=== PATIENT | male | born 1980 | race Caucasian/White ===

== ENCOUNTER 2018-04-20 14:58 | Observation (INO) ==
[2018-04-20] MEDS ORDERED: Ampicillin/Sulbactam 3,000 MG in D5% in Water (Mini-Bag+) 100 ML IVPB ONE (15:59)
[2018-04-20] MEDS ORDERED: *HR* OxyCODONE/APAP 5/325 TABLET PO ONE (15:59)
[2018-04-20] MEDS ORDERED: 0.9 % Sodium Chloride 1,000 ML IVC ONE (15:59)
[2018-04-20] MEDS ORDERED: Vancomycin 1,000 MG VIAL IVPB ONE (15:59)
--- NOTE | 2018-04-20 16:05 | Emergency Department Note ---
Disposition Clinical Impression: Abscess of skin or subcutaneous tissue Qualifiers: Site of cutaneous abscess: extremity Site of cutaneous abscess of extremity: lower extremity Laterality: right Qualified Code(s): L02.415 - Cutaneous abscess of right lower limb Disposition: Admitted As Inpatient Condition: Good Referrals: Ciera Lyn ROUTER TENDER [Primary Care Provider] - Time of Disposition: 19:15 (Dr Diaz acepted pt for IV ABX) Skin/Abscess/FB HPI Stated complaint: infection Source: patient Mode of arrival: ambulatory Nursing Notes Reviewed: Yes Vital Signs Reviewed: Yes HPI Narrative: Patient is a pleasant 37-year-old male with significant PMH diabetes, dyslipidemia, morbid obesity and recurrent cellulitis who is presenting to [facility] Emergency Room with a chief complaint off right inner thigh with worsening wound. He states that about 2 weeks ago he was seen at [facility] and was treated for his cellulitis. It was drained by the surgeon Dr. Torre. Today he went again but was unable to see him because off and after unavailability of the surgeon. Discussion with Dr Whitney ER physician states that pt was there earlier and Dr Torre was not available. He couldnt drain it because pt is on xeralta. Patient denies any fever, chills or night sweats. Pt also denies any eye pain or visual disturbances. There is no sore throat, nasal drainages or facial congestion. There is no chest pain, palpitations or racing heart. Pt also denies any shortness of breath, cough or chest congestion. There is no abdominal pain, nausea, vomiting or diarrhea. There is no urgency, frequency or dysuria. There is no neurological manifestations, no headache, no vertigo or weakness. The patient also denies any anxiety, depression, hallucinations and has no homicidal or suicidal ideations. There is no polyuria, polydipsia or recent weight change. There is no easy bruising or bleeding. Review of other systems is otherwise negative except above. Pt Subjective Complaint: abscess/boil Onset (ago): week(s) Location: RLE Severity: moderate Severity scale (1-10): 5 Quality: dull Home Medications Medication Instructions Recorded Confirmed Fluticasone Propionate Nasal 1 spray NS DAILY 03/23/15 04/20/18 [Flonase] Gabapentin [Neurontin] 900 mg PO TID 03/23/15 04/20/18 Glimepiride [Amaryl] 2 mg PO DAILY 03/23/15 04/20/18 GuaiFENesin ER [Mucinex] 600 mg PO BID 03/23/15 04/20/18 Hydrochlorothiazide 12.5 mg PO DAILY 03/23/15 04/20/18 Levothyroxine Sodium [Synthroid] 100 mcg PO DAILY 03/23/15 04/20/18 Loratadine [Loradamed] 10 mg PO DAILY 03/23/15 04/20/18 Meloxicam 15 mg PO DAILY 03/23/15 04/20/18 Metformin [Glucophage] 2 tab PO BID 03/23/15 04/20/18 Montelukast Sodium [Singulair] 10 mg PO HS 03/23/15 04/20/18 Omeprazole [Prilosec] 40 mg PO HS #0 03/23/15 04/20/18 Rivaroxaban [Xarelto] 20 mg PO HS 03/23/15 04/20/18 Albuterol Sulfate [Proair HFA] 2 puff IH Q4HR PRN 03/25/15 04/20/18 Ergocalciferol (VITAMIN D2) 50,000 unit PO QWEEK 03/25/15 04/20/18 [Drisdol] DULoxetine [Cymbalta] 40 mg PO DAILY 02/22/17 04/20/18 Allergies Allergy/AdvReac Type Severity Reaction Status Date / Time sulfamethoxazole Allergy Mild Hives Verified 02/22/17 00:15 [From Bactrim] trimethoprim [From Bactrim] Allergy Mild Hives Verified 02/22/17 00:15 Penicillins [PCN] AdvReac Mild UNKNOWN Verified 02/22/17 00:15 adhesive tape AdvReac Hives Verified 02/22/17 00:15 All systems ED: reviewed and negative except as stated. Review of Systems: As Per HPI Constitutional: Reports: chills. Denies: fever Eyes: Denies: eye pain, eye discharge ENT ED: Denies: ear pain, throat pain Cardiovascular: Denies: chest pain, palpitations Respiratory: Denies: cough, dyspnea Gastrointestinal: Denies: abdominal pain, nausea Genitourinary: Denies: urgency, dysuria Musculoskeletal: Denies: back pain, neck pain Integumentary: Reports: rash Past Medical History - Past Medical History Medical history: Reports: COPD, DVT, diabetes, thyroid disease Psychiatric history: Reports: anxiety, depression - Social History Smoking Status: Current every day smoker Smokeless Tobacco Status: No Alcohol use: Reports: none Drug use: Reports: none, other Physical Exam - General Limitations: no limitations General appearance: alert, in no apparent distress - Head Head exam: atraumatic, normocephalic, normal inspection - Eye Eye exam: Present: normal appearance, PERRL, EOMI - Expanded Eye Exam Pupils: Left: reactive - ENT ENT exam: normal exam, normal oropharynx, mucous membranes moist - Expanded ENT Exam External ear exam: Present: normal external inspection Mouth exam: Present: normal external inspection Teeth exam: Present: normal inspection Throat exam: Present: normal inspection - Neck Neck exam: Present: normal inspection, full ROM, trachea midline - Chest Chest inspection: Present: normal inspection, symmetric chest wall rise - Respiratory Respiratory exam: Present: normal lung sounds bilaterally - Cardiovascular Cardiovascular exam: Present: regular rate, normal rhythm, normal heart sounds - Abdominal Exam Abdominal exam: Present: soft, Non-Tender. Absent: tenderness, distention, guarding, rebound, rigidity - Extremities Exam Extremities exam: Present: normal inspection, full ROM. Absent: tenderness, pedal edema - Expanded Upper Extremity Exam Shoulder exam: Present: normal inspection, full ROM Arm exam: Present: normal inspection, full ROM Elbow exam: Present: normal inspection, full ROM Forearm/Wrist exam: Present: normal inspection, full ROM Hand exam: Present: normal inspection, full ROM Vascular exam: Normal: capillary refill, radial pulse - Expanded Lower Extremity Exam Hip/Pelvis exam: Present: normal inspection, full ROM Upper leg exam: Present: normal inspection, full ROM, erythema, other (there is about 8x9 cm non fluctuant swelling granulation tidsues and surrounded by erythema, tender to touch, swelling is opened and ozing blood) Knee exam: Present: normal inspection, full ROM Lower leg exam: Present: normal inspection, full ROM Ankle exam: Present: normal inspection, full ROM Foot/toe exam: Present: normal inspection, full ROM Neurovascular/Tendon exam: Absent: motor deficit, sensory deficit, tendon deficit - Back Exam Back exam: Present: normal inspection, full ROM. Absent: tenderness - Neurological Exam Neurological exam: Present: alert, oriented X3 - Expanded Neurological Exam Patient oriented to: Present: person, place, time Coma Scale Eye Opening: Spontaneous Coma Scale Motor Response: Obeys Commands Coma Scale Verbal Response: Oriented Coma Scale Total: 15 - Psychiatric Psychiatric exam: Present: normal affect, normal mood - Skin Skin exam: Present: warm, dry, intact, normal color Course Vital Signs Temperature 97.5 F L 04/20/18 15:30 Pulse Rate 124 04/20/18 15:30 Respiratory Rate 18 04/20/18 15:30 Blood Pressure 126/70 04/20/18 15:30 O2 Sat by Pulse Oximetry 90 04/20/18 15:30 Temperature 97.5 F L 04/20/18 15:30 Pulse Rate 124 04/20/18 15:30 Respiratory Rate 18 04/20/18 15:30 Blood Pressure 126/70 04/20/18 15:30 O2 Sat by Pulse Oximetry 90 04/20/18 15:30 Oxygen Delivery Oxygen Delivery Room Air Skin/Abscess/Foreign Body - Differential Diagnosis Likely: abscess of skin or subcutaneous tissue, viral exanthem, dermatophytosis , cellulitis - Medical Records Medical records reviewed: Yes I reviewed the patient's medical records. - Lab Data Lab results reviewed: Yes I reviewed the patient's lab results. Result diagrams: 04/20/18 16:40 04/20/18 16:40 Lab Results 04/20/18 04/20/18 Range/Units 16:40 16:40 WBC 11.9 H (4.3-11.1) K/mcL RBC 5.13 (4.19-5.50) M/mcL Hgb 15.5 (12.9-16.9) g/dL Hct 46.3 (37.5-50.1) % MCV 90.3 (83.0-100.0) fL MCH 30.2 (28.0-33.3) pg MCHC 33.5 (31.6-35.5) g/dL RDW 14.9 H (11.5-14.5) % Plt Count 239 (140-400) K/mcL MPV 9.9 (9.4-12.4) fL Immature Gran % 1.1 (0-4) % Seg Neutrophils % 76.9 % Lymphocytes % 15.1 % Monocytes % 4.6 % Eosinophils % 2.0 % Basophils % 0.3 % Neutrophils # 9.2 H (1.6-8.9) K/mcL Lymphocytes # 1.8 (0.6-4.6) K/mcL Monocytes # 0.6 (0.0-1.3) K/mcL Eosinophils # 0.2 (0.0-0.6) K/mcL Basophils # 0.0 (0.0-0.2) K/mcL Sodium 131 L (136-145) mEq/L Potassium 4.0 (3.5-5.1) mEq/L Chloride 98 (98-107) mEq/L Carbon Dioxide 26 (23-29) mEq/L BUN 11 (6-20) mg/dL Creatinine 0.90 (0.70-1.30) mg/dL Est GFR ( Amer) > 60 (> 60) Est GFR (Non-Af Amer) > 60 (> 60) BUN/Creatinine Ratio 12 (6-26) Glucose 276 H (70-105) mg/dL Calculated Osmolality 281 (280-300) Calcium 9.1 (8.6-10.3) mg/dL - Radiology Data Radiology results reviewed: Yes I reviewed the patient's radiology results. - EKG Data EKG attestation: Yes I reviewed and interpreted this EKG.
[2018-04-20] MEDS ORDERED: cefTRIAXone 2,000 MG in Water for inj. (sterile) 20 ML 20 ML IVP ONE (16:44)
[2018-04-20 16:56] LABS: Basophils % 0.3 %; Eosinophils # 0.2 K/mcL (0.0-0.6); Hematocrit 46.3 % (37.5-50.1); Hemoglobin 15.5 g/dL (12.9-16.9); Immature Granulocytes % 1.1 % (0-4); Lymphocytes # 1.8 K/mcL (0.6-4.6); Lymphocytes % 15.1 %; Mean Corpuscular HGB Conc 33.5 g/dL (31.6-35.5); Mean Corpuscular Hemoglobin 30.2 pg (28.0-33.3); Mean Corpuscular Volume 90.3 fL (83.0-100.0); Mean Platelet Volume 9.9 fL (9.4-12.4); Monocytes # 0.6 K/mcL (0.0-1.3); Monocytes % 4.6 %; Neutrophils # 9.2 K/mcL (1.6-8.9); Platelet Count 239 K/mcL (140-400); Red Blood Count 5.13 M/mcL (4.19-5.50); Red Cell Distribution Width 14.9 % (11.5-14.5); Segmented Neutrophils % 76.9 %
[2018-04-20 17:06] LABS: BUN/Creatinine Ratio 12 (6-26); Blood Urea Nitrogen 11 mg/dL (6-20); Calcium 9.1 mg/dL (8.6-10.3); Carbon Dioxide 26 mEq/L (23-29); Chloride 98 mEq/L (98-107); Glucose 276 mg/dL (70-105); Osmolality,Calculated 281 (280-300); Sodium 131 mEq/L (136-145); eGFR For Non-African Americans > 60 (> 60)
[2018-04-20] MEDS ORDERED: Acetaminophen 325 MG TABLET PO PRN (20:20)
[2018-04-20] MEDS ORDERED: Naloxone 0.4 MG/ML INJ IVP PRN (20:20)
[2018-04-20] MEDS ORDERED: traMADol 50 MG TABLET PO PRN (20:20)
[2018-04-21] MEDS ORDERED: cefTRIAXone 2,000 MG in Water for inj. (sterile) 20 ML 20 ML IVPB SCH (01:00)
[2018-04-21] MEDS ORDERED: D5% in Water 1,000 ML IVC PRN ×2 (01:02→12:46)
[2018-04-21] MEDS ORDERED: Dextrose Gel 15 GM/37.5 ML TUBE PO PRN ×4 (01:02→12:46)
[2018-04-21] MEDS ORDERED: *HR* Dextrose 50 % in Water (Syg) 50 ML SYRINGE IVP PRN ×2 (01:02→12:46)
[2018-04-21] MEDS: 0.9 % Sodium Chloride 1,000 ML IVC SCH ×2 (02:00→08:07)
[2018-04-21 05:34] LABS: Basophils % 0.3 %; Eosinophils # 0.3 K/mcL (0.0-0.6); Hematocrit 42.7 % (37.5-50.1); Hemoglobin 14.2 g/dL (12.9-16.9); Immature Granulocytes % 0.3 % (0-4); Lymphocytes # 1.9 K/mcL (0.6-4.6); Lymphocytes % 17.7 %; Mean Corpuscular HGB Conc 33.3 g/dL (31.6-35.5); Mean Corpuscular Volume 90.3 fL (83.0-100.0); Mean Platelet Volume 9.9 fL (9.4-12.4); Monocytes # 0.5 K/mcL (0.0-1.3); Monocytes % 4.3 %; Neutrophils # 8.2 K/mcL (1.6-8.9); Platelet Count 238 K/mcL (140-400); Red Blood Count 4.73 M/mcL (4.19-5.50); Red Cell Distribution Width 14.7 % (11.5-14.5); Segmented Neutrophils % 74.4 %
[2018-04-21 05:56] LABS: Alanine Aminotransferase 11 Units/L (7-52); Albumin 3.6 g/dL (3.5-5.7); Albumin/Globulin Ratio 1.3 (1.1-2.2); Alkaline Phosphatase 73 Units/L (34-104); Aspartate Amino Transferase 11 Units/L (13-39); BUN/Creatinine Ratio 13 (6-26); Bilirubin,Total 0.3 mg/dL (0.3-1.0); Blood Urea Nitrogen 10 mg/dL (6-20); Calcium 8.5 mg/dL (8.6-10.3); Carbon Dioxide 25 mEq/L (23-29); Chloride 100 mEq/L (98-107); Chol/HDL Ratio 7.2 (0-4.9); Cholesterol 159 mg/dL (< 200); Globulin 2.7 g/dL (2.4-3.5); Glucose 254 mg/dL (70-105); HDL Cholesterol 22 mg/dL (40-59); LDL Cholesterol,Calculated 109 mg/dL (0-99); Magnesium 1.8 mg/dL (1.6-2.6); Osmolality,Calculated 280 (280-300); Potassium 3.7 mEq/L (3.5-5.1); Sodium 131 mEq/L (136-145); Total Protein 6.3 g/dL (6.4-8.9); Triglycerides 141 mg/dL (< 150); eGFR For Non-African Americans > 60 (> 60)
[2018-04-21] MEDS: Insulin LISPRO 300 UNITS/3 ML VIAL SQ SCH ×2 (08:07→12:49)
--- NOTE | 2018-04-21 09:22 | Internal Med History&Physical ---
Date of Encounter: 04/21/18 Time of Encounter: 09:00 Assessment and Plan (1) Cellulitis Current visit: Yes Status: Acute - Continue vancomycin and ceftriaxone for now, will consider escalating to cefepime as appropriate. - F/U on blood cultures. - Will involve wound care. Qualifiers: Site of cellulitis: extremity Site of cellulitis of extremity: lower extremity Laterality: right Qualified Code(s): L03.115 - Cellulitis of right lower limb (2) Tobacco abuse Current visit: Yes Status: Chronic Counseling provided; patient no ready to quit yet and declined nicotine patches at this time. (3) Hyperglycemia due to type 2 diabetes mellitus Current visit: Yes Status: Chronic SSI, hypogycemia protocol, A1c, continue home glimepiride, hold off on home metformin for now. 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 Nichols is a 37 year old male who presented to our ED with cellulitis over the past 3d. Per the patient, he required doxycycline and wound care in the past for cellulitis, but has not needed any antibiotics over the past 3 weeks. However, over the past 3d, the cellulitis over his right inner thigh has been worsening, associated with some bleeding and pain, described as non-radiating, sharp, 6/10 currently, constant, alleviated by resting, and exacerbated by pressure/friction. Other associated symptoms include chills and nausea. Patient reports no fever, CP, palpitations, SOB, vomiting, seizure, or other bleeding symptoms. In our ED, the patient was tachycardic. Labs were significant for mild leukocytosis, mild hyponatremia, and hyperglycemia. Blood cultures were obtained. Patient received NS, vancomycin, ceftriaxone, and was admitted for further management. 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, ivc filter, turbonectomy - Social History Smoking Status: Current every day smoker Smokeless Tobacco Status: No Alcohol use: none Drug use: none, other - Family History Father Living Status: Age at : 55 Cause of : heart Hx Family Cardiac Disorders: Yes Hx Family Respiratory Disorders: Yes Hx Family Cancer: No Hx Family GI Disorders: No Hx Family Genitourinary Disorders: No Hx Family Endocrine Disorder: No Hx Family Musculoskeletal Disorders: No Hx Family Neuromuscular Disorders: No Hx Family Neurologic Disorders: No Hx Family HEENT Disorders: No Hx Family Autoimmune Disorders: No Hx Family Reproductive Disorders: No Hx Family Psychosocial Disorders: No Hx Family Medical Disorders: No Internal Medicine - H&P: Meds Fluticasone Propionate Nasal [Flonase] 1 spray NS DAILY 03/23/15 [History] Gabapentin [Neurontin] 900 mg PO TID 03/23/15 [History] Glimepiride [Amaryl] 2 mg PO DAILY 03/23/15 [History] GuaiFENesin ER [Mucinex] 600 mg PO BID 03/23/15 [History] Hydrochlorothiazide 12.5 mg PO DAILY 03/23/15 [History] Levothyroxine Sodium [Synthroid] 100 mcg PO DAILY 03/23/15 [History] Loratadine [Loradamed] 10 mg PO DAILY 03/23/15 [History] Meloxicam 15 mg PO DAILY 03/23/15 [History] Metformin [Glucophage] 2 tab PO BID 03/23/15 [History] Montelukast Sodium [Singulair] 10 mg PO HS 03/23/15 [History] Omeprazole [Prilosec] 40 mg PO HS #0 03/23/15 [History] Rivaroxaban [Xarelto] 20 mg PO HS 03/23/15 [History] Albuterol Sulfate [Proair HFA] 2 puff IH Q4HR PRN 03/25/15 [History] Ergocalciferol (VITAMIN D2) [Drisdol] 50,000 unit PO QWEEK 03/25/15 [History] DULoxetine [Cymbalta] 40 mg PO DAILY 02/22/17 [History] 3 Allergy/AdvReac Type Severity Reaction Status Date / Time sulfamethoxazole Allergy Mild Hives Verified 02/22/17 00:15 [From Bactrim] trimethoprim [From Bactrim] Allergy Mild Hives Verified 02/22/17 00:15 Penicillins [PCN] AdvReac Mild UNKNOWN Verified 02/22/17 00:15 adhesive tape AdvReac Hives Verified 02/22/17 00:15 All Systems PM: A 10-system review of systems was performed and is negative for pertinent findings except as documented above in the HPI. Review of systems: 10 systems reviewed and (-) other than mentioned per HPI. - Constitutional Vitals: Temp Pulse Resp BP Pulse Ox 98.1 F 102 18 139/89 92 04/21/18 07:30 04/21/18 07:30 04/21/18 07:30 04/21/18 07:30 04/21/18 07:30 Exam: Gen: A&Ox3, NAD. Morbidly obese. HEENT: NCAT. Neck: No palpable lymphadenopathy or thyromegaly. CV: Borderline tachycardic with a regular rhythm, S1S2. No murmur. Capillary refill < 2 seconds. Pulm: CTAB. Abd: (+)BS. NDNT. Neuro: Non-focal. Skin: Cellulitis over the right inner thigh appreciated. Ext: RLE in grace wrap, 1(+) pitting edema in LLE. Internal Med - H&P Results - Labs CBC & Chem 7: 04/21/18 04:55 04/21/18 04:55 Labs: Short CBC 04/21/18 Range/Units 04:55 WBC 11.0 (4.3-11.1) K/mcL Hgb 14.2 (12.9-16.9) g/dL Hct 42.7 (37.5-50.1) % Plt Count 238 (140-400) K/mcL Neutrophils # 8.2 (1.6-8.9) K/mcL BMP 04/21/18 04:55 Sodium 131 L Potassium 3.7 Chloride 100 Carbon Dioxide 25 BUN 10 Creatinine 0.78 Glucose 254 H Calcium 8.5 L Liver Function 04/21/18 Range/Units 04:55 Total Bilirubin 0.3 (0.3-1.0) mg/dL AST 11 L (13-39) Units/L ALT 11 (7-52) Units/L Alkaline Phosphatase 73 (34-104) Units/L Albumin 3.6 (3.5-5.7) g/dL
[2018-04-21 11:52] VITALS: BP 122/72
[2018-04-21] MEDS ORDERED: Loratadine 10 MG TABLET PO SCH (12:46)
[2018-04-21] MEDS ORDERED: Naloxone 0.4 MG/ML INJ IVP PRN (12:46)
[2018-04-21] MEDS ORDERED: traMADol 50 MG TABLET PO PRN (12:46)
[2018-04-21] MEDS ORDERED: hydroCHLOROthiazide 25 MG TABLET PO SCH (12:46)
[2018-04-21] MEDS ORDERED: Fluticasone Propionate Nasal 50 MCG/SPRAY BOTTLE NS SCH (12:46)
[2018-04-21] MEDS ORDERED: Acetaminophen 325 MG TABLET PO PRN (12:46)
[2018-04-21] MEDS ORDERED: *HR* Glimepiride 2 MG TABLET PO SCH (12:46)
[2018-04-21] MEDS ORDERED: Gabapentin 300 MG CAPSULE PO SCH (13:30)
[2018-04-21] MEDS ORDERED: Aminoglycoside Consult 1 EACH MC ONE (16:14)
[2018-04-21] MEDS ORDERED: Insulin LISPRO 300 UNITS/3 ML VIAL SQ SCH ×3 (16:30→21:00)
[2018-04-21] MEDS ORDERED: *HR* Rivaroxaban 10 MG TABLET PO SCH (17:00)
[2018-04-22] MEDS ORDERED: cefTRIAXone 2,000 MG in Water for inj. (sterile) 20 ML 20 ML IVPB SCH (01:00)
--- NOTE | 2018-04-23 12:22 | Discharge Summary ---
Date of Encounter: 04/21/18 Time of Encounter: 15:00 - Discharge Diagnosis (1) Cellulitis Priority: Primary Status: Acute Comments: Left AMA. Qualifiers: Site of cellulitis: extremity Site of cellulitis of extremity: lower extremity Laterality: right Qualified Code(s): L03.115 - Cellulitis of right lower limb (2) Tobacco abuse Priority: Secondary Status: Chronic Comments: Left AMA. (3) Hyperglycemia due to type 2 diabetes mellitus Priority: Secondary Status: Chronic Comments: Left AMA. 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 Nichols is a 37 year old male who was admitted for cellulitis requiring IV antibiotics. Unfortunately, on 04/21/2018, the patient decided to leave AMA, despite having been told of all of the potential risks, including . - Time Spent with Patient Total time spent providing and/or coordinating discharge services: - Discharge Medications Home Medications: Fluticasone Propionate Nasal [Flonase] 1 spray NS DAILY 03/23/15 [History] Gabapentin [Neurontin] 900 mg PO TID 03/23/15 [History] Glimepiride [Amaryl] 2 mg PO DAILY 03/23/15 [History] GuaiFENesin ER [Mucinex] 600 mg PO BID 03/23/15 [History] Hydrochlorothiazide 12.5 mg PO DAILY 03/23/15 [History] Levothyroxine Sodium [Synthroid] 100 mcg PO DAILY 03/23/15 [History] Loratadine [Loradamed] 10 mg PO DAILY 03/23/15 [History] Meloxicam 15 mg PO DAILY 03/23/15 [History] Metformin [Glucophage] 2 tab PO BID 03/23/15 [History] Montelukast Sodium [Singulair] 10 mg PO HS 03/23/15 [History] Omeprazole [Prilosec] 40 mg PO HS #0 03/23/15 [History] Rivaroxaban [Xarelto] 20 mg PO HS 03/23/15 [History] Albuterol Sulfate [Proair HFA] 2 puff IH Q4HR PRN 03/25/15 [History] Ergocalciferol (VITAMIN D2) [Drisdol] 50,000 unit PO QWEEK 03/25/15 [History] DULoxetine [Cymbalta] 40 mg PO DAILY 02/22/17 [History] Allergies/Adverse Reactions: 3 Allergy/AdvReac Type Severity Reaction Status Date / Time sulfamethoxazole Allergy Mild Hives Verified 02/22/17 00:15 [From Bactrim] trimethoprim [From Bactrim] Allergy Mild Hives Verified 02/22/17 00:15 Penicillins [PCN] AdvReac Mild UNKNOWN Verified 02/22/17 00:15 adhesive tape AdvReac Hives Verified 02/22/17 00:15 Date of admission: 04/20/18 20:31 Primary care physician: Ciera Lyn CNP Consults: 04/21/18 09:41 Consult to Wound Care [CONS] Routine Reason for Consult: Right inner thigh cellulitis Call Completed: No - Constitutional Vitals: Temp Pulse Resp BP Pulse Ox 97.5 F L 87 18 122/72 94 04/21/18 11:51 04/21/18 11:51 04/21/18 11:51 04/21/18 11:51 04/21/18 11:51 - Patient Status Disposition: Left Against Medical Advice Condition: Good - Discharge Instructions Instructions: Wound Infection (GEN) Forms: ED Satisfaction Letter Additional Instructions: reviewed wound care on bilateral inner thighs and dressing changes
== END 2018-04-21 16:15 | disposition left against medical advice (07) ==
LOC: EMEROOGRE 14:58 → INPGRE 14:58

== ENCOUNTER 2019-09-18 17:54 | Observation (INO) ==
[2019-09-18] MEDS ORDERED: 0.9 % Sodium Chloride 500 ML IVC ONE (18:00)
[2019-09-18] MEDS ORDERED: Piperacillin/Tazobactam 3.375 GM in 0.9 % Sodium Chloride Mini Bag 100 ML IVPB ONE (18:16)
[2019-09-18 19:04] LABS: Basophils % 0.4 %; Eosinophils # 0.5 K/mcL (0.0-0.6); Eosinophils % 4.7 %; Hematocrit 42.7 % (37.5-50.1); Hemoglobin 13.9 g/dL (12.9-16.9); Immature Granulocytes % 0.4 % (0-4); Lymphocytes # 1.9 K/mcL (0.6-4.6); Mean Corpuscular HGB Conc 32.6 g/dL (31.6-35.5); Mean Corpuscular Hemoglobin 28.8 pg (28.0-33.3); Mean Corpuscular Volume 88.4 fL (83.0-100.0); Monocytes # 0.5 K/mcL (0.0-1.3); Monocytes % 4.8 %; Neutrophils # 7.7 K/mcL (1.6-8.9); Platelet Count 260 K/mcL (140-400); Red Blood Count 4.83 M/mcL (4.19-5.50); Red Cell Distribution Width 16.5 % (11.5-14.5); Segmented Neutrophils % 71.7 %; White Blood Count 10.7 K/mcL (4.3-11.1)
[2019-09-18 19:16] LABS: BUN/Creatinine Ratio 9 (6-26); Blood Urea Nitrogen 7 mg/dL (6-20); Calcium 9.1 mg/dL (8.6-10.3); Carbon Dioxide 28 mEq/L (23-29); Chloride 102 mEq/L (98-107); Glucose 165 mg/dL (70-105); Osmolality,Calculated 282 (280-300); Sodium 135 mEq/L (136-145); eGFR For African Americans > 60 (> 60); eGFR For Non-African Americans > 60 (> 60)
[2019-09-18 19:17] LABS: Albumin 3.9 g/dL (3.5-5.7); Albumin/Globulin Ratio 1.2 (1.1-2.2); Bilirubin,Direct 0.1 mg/dL (0.0-0.2); Bilirubin,Indirect 0.3 mg/dL (0.0-1.0); Bilirubin,Total 0.4 mg/dL (0.3-1.0); Globulin 3.3 g/dL (2.4-3.5); Total Protein 7.2 g/dL (6.4-8.9)
[2019-09-18] MEDS ORDERED: Dextrose Gel 15 GM/37.5 ML TUBE PO PRN ×2 (21:17)
[2019-09-18] MEDS ORDERED: Ondansetron 4 MG/2 ML VIAL IVP PRN (21:17)
[2019-09-18] MEDS ORDERED: VICTOZA SQ SCH (21:17)
[2019-09-18] MEDS ORDERED: *HR* Dextrose 50 % in Water (Vial) 50 ML VIAL IVP PRN (21:17)
[2019-09-18] MEDS ORDERED: D5% in Water 1,000 ML IVC PRN (21:17)
[2019-09-18] MEDS ORDERED: Naloxone 0.4 MG/ML INJ IVP PRN (21:17)
[2019-09-18] MEDS ORDERED: INSULIN LISPRO 100 UNIT SQ SCH (21:17)
[2019-09-18] MEDS ORDERED: Acetaminophen 325 MG TABLET PO PRN (21:17)
[2019-09-18] MEDS: Linezolid 600 MG TABLET PO SCH (22:22)
[2019-09-18] MEDS: Gabapentin 300 MG CAPSULE PO SCH (22:25)
[2019-09-18] MEDS: hydroCHLOROthiazide 25 MG TABLET PO SCH (22:26)
[2019-09-18] MEDS: *HR* Metformin 500 MG TABLET PO SCH (23:20)
[2019-09-19] MEDS ORDERED: Insulin LISPRO 300 UNITS/3 ML VIAL SQ SCH
[2019-09-19] MEDS: Piperacillin/Tazobactam 3.375 GM in 0.9 % Sodium Chloride Mini Bag 100 ML IVPB SCH ×3 (00:11→16:10)
[2019-09-19 05:57] LABS: Basophils % 0.4 %; Eosinophils # 0.6 K/mcL (0.0-0.6); Eosinophils % 6.4 %; Hematocrit 42.3 % (37.5-50.1); Hemoglobin 13.6 g/dL (12.9-16.9); Immature Granulocytes % 0.4 % (0-4); Lymphocytes # 2.2 K/mcL (0.6-4.6); Lymphocytes % 22.7 %; Mean Corpuscular HGB Conc 32.2 g/dL (31.6-35.5); Mean Corpuscular Hemoglobin 28.3 pg (28.0-33.3); Mean Corpuscular Volume 88.1 fL (83.0-100.0); Mean Platelet Volume 9.5 fL (9.4-12.4); Monocytes # 0.5 K/mcL (0.0-1.3); Monocytes % 4.9 %; Neutrophils # 6.4 K/mcL (1.6-8.9); Platelet Count 268 K/mcL (140-400); Red Cell Distribution Width 16.6 % (11.5-14.5); Segmented Neutrophils % 65.2 %; White Blood Count 9.8 K/mcL (4.3-11.1)
[2019-09-19 06:11] LABS: BUN/Creatinine Ratio 7 (6-26); Blood Urea Nitrogen 6 mg/dL (6-20); Calcium 8.7 mg/dL (8.6-10.3); Carbon Dioxide 24 mEq/L (23-29); Chloride 98 mEq/L (98-107); Glucose 407 mg/dL (70-105); Osmolality,Calculated 283 (280-300); Potassium 3.7 mEq/L (3.5-5.1); Sodium 129 mEq/L (136-145); eGFR For African Americans > 60 (> 60); eGFR For Non-African Americans > 60 (> 60)
[2019-09-19 08:43] LABS: Estimated Average Glucose 243 mg/dl
[2019-09-19] MEDS ORDERED: *HR* Rivaroxaban 10 MG TABLET PO SCH (09:00)
[2019-09-19] MEDS: Loratadine 10 MG TABLET PO SCH (09:44)
[2019-09-19] MEDS: *HR* Metformin 500 MG TABLET PO SCH ×2 (09:44→16:11)
[2019-09-19] MEDS: hydroCHLOROthiazide 25 MG TABLET PO SCH (09:44)
[2019-09-19] MEDS: Gabapentin 300 MG CAPSULE PO SCH ×3 (09:44→21:26)
[2019-09-19] MEDS: *HR* Pioglitazone 30 MG TABLET PO SCH (09:45)
[2019-09-19] MEDS: Linezolid 600 MG TABLET PO SCH (09:45)
[2019-09-19] MEDS: *HR* Glimepiride 4 MG TABLET PO SCH (09:45)
[2019-09-19] MEDS: Insulin LISPRO 300 UNITS/3 ML VIAL SQ SCH ×4 (09:45→21:04)
[2019-09-19] MEDS: Doxycycline 100 MG in 0.9 % Sodium Chloride Mini Bag 100 ML IVPB SCH ×2 (10:08→21:31)
[2019-09-19] MEDS: Fluticasone Propionate Nasal 50 MCG/SPRAY BOTTLE NS SCH (10:35)
[2019-09-19] MEDS: Insulin DETEMIR 100 UNIT/ML X5UNITS SQ SCH (10:36)
[2019-09-20] MEDS: Piperacillin/Tazobactam 3.375 GM in 0.9 % Sodium Chloride Mini Bag 100 ML IVPB SCH ×3 (00:39→16:31)
[2019-09-20] MEDS: Doxycycline 100 MG in 0.9 % Sodium Chloride Mini Bag 100 ML IVPB SCH ×2 (05:17→20:57)
[2019-09-20] MEDS: *HR* Pioglitazone 30 MG TABLET PO SCH (08:39)
[2019-09-20] MEDS: *HR* Metformin 500 MG TABLET PO SCH ×2 (08:40→16:30)
[2019-09-20] MEDS: Gabapentin 300 MG CAPSULE PO SCH ×3 (08:40→20:58)
[2019-09-20] MEDS: *HR* Rivaroxaban 10 MG TABLET PO SCH (08:40)
[2019-09-20] MEDS: Loratadine 10 MG TABLET PO SCH (08:40)
[2019-09-20] MEDS: *HR* Glimepiride 4 MG TABLET PO SCH (08:40)
[2019-09-20] MEDS: hydroCHLOROthiazide 25 MG TABLET PO SCH (08:40)
[2019-09-20] MEDS: Insulin LISPRO 300 UNITS/3 ML VIAL SQ SCH ×4 (08:47→21:08)
[2019-09-20] MEDS: Insulin DETEMIR 100 UNIT/ML X5UNITS SQ SCH (08:47)
[2019-09-20] MEDS: Fluticasone Propionate Nasal 50 MCG/SPRAY BOTTLE NS SCH (08:47)
[2019-09-21] MEDS: Piperacillin/Tazobactam 3.375 GM in 0.9 % Sodium Chloride Mini Bag 100 ML IVPB SCH ×2 (00:27→08:23)
[2019-09-21] MEDS: Doxycycline 100 MG in 0.9 % Sodium Chloride Mini Bag 100 ML IVPB SCH (06:15)
[2019-09-21 07:26] VITALS: BP 98/54
[2019-09-21] MEDS: Insulin LISPRO 300 UNITS/3 ML VIAL SQ SCH ×2 (08:28→12:55)
[2019-09-21] MEDS: *HR* Pioglitazone 30 MG TABLET PO SCH (08:29)
[2019-09-21] MEDS: Loratadine 10 MG TABLET PO SCH (08:29)
[2019-09-21] MEDS: *HR* Metformin 500 MG TABLET PO SCH (08:29)
[2019-09-21] MEDS: Insulin DETEMIR 100 UNIT/ML X5UNITS SQ SCH (08:29)
[2019-09-21] MEDS: *HR* Rivaroxaban 10 MG TABLET PO SCH (08:29)
[2019-09-21] MEDS: Gabapentin 300 MG CAPSULE PO SCH (08:29)
[2019-09-21] MEDS: hydroCHLOROthiazide 25 MG TABLET PO SCH (08:29)
[2019-09-21] MEDS: *HR* Glimepiride 4 MG TABLET PO SCH (08:29)
[2019-09-21] MEDS: Fluticasone Propionate Nasal 50 MCG/SPRAY BOTTLE NS SCH (08:30)
== END 2019-09-21 13:44 | disposition home health service (06) ==
LOC: INPGRE 17:54 → EMEROOGRE 17:54 → OBSVTOIN 21:11 → INTOOBSV 21:11 → INPGRE 21:21
PROVIDERS: ADMIT Family Medicine; ATTEND Family Medicine